=== PATIENT | female | born 1970 | race Caucasian/White ===

== ENCOUNTER → 2016-04-02 | Outpatient (CLI) | payer BC | LOC: RAD 14:19 | PROVIDERS: ATTEND Obstetrics & Gynecology | DX: N83.202 Unspecified ovarian cyst, left side (principal); Z90.710 Acquired absence of both cervix and uterus | CPT/HCPCS: 76856 ==

== ENCOUNTER → 2016-05-15 | Outpatient (CLI) | payer BC ==
[~2016-05-15] MED LIST: ALBU6.7H IH; ALPR1TAB PO; ASPI81TA16 PO; MONT10TA21 PO; TRAZ-28 PO
[2016-05-15 10:02] LABS: BASOPHILS % (AUTO) 0 % (0-2); EOSINOPHILS # (AUTO) 0.2 10^3uL; EOSINOPHILS % (AUTO) 3 % (0-4); LYMPHOCYTES # (AUTO) 2.1 X10^3; MEAN CORPUSCULAR HEMOGLOBIN 28.4 PG (26.0-34.0); MEAN CORPUSCULAR HGB CONC 33.1 g/dL (31.0-37.0); MEAN CORPUSCULAR VOLUME 86 FL (80-100); MEAN PLATELET VOLUME 8.7 FL (6.0-9.5); MONOCYTES # (AUTO) 0.4 X10^3; MONOCYTES % (AUTO) 5 % (3-11); NEUTROPHILS # (AUTO) 4.5 X10^3; NEUTROPHILS % (AUTO) 62 % (51-67); PLATELET COUNT 279 10^3uL (150-450)
[2016-05-15 10:18] LABS: ALBUMIN 4.5 g/dL (3.4-5.0); ANION GAP 17.4 MEQ/L (3-15); CALCULATED IONIZED CALCIUM 3.8 mg/dL (3.8-4.6); TOTAL PROTEIN 7.7 g/dL (6.4-8.5)
--- NOTE | 2016-05-15 10:59 | Diagnostic Imaging Report ---
INDICATION: Screening prior to operative procedure. PA and lateral views of the chest were obtained. FINDINGS: The heart size, mediastinal configuration, and pulmonary vascularity are within normal limits. There is no pleural effusion, pneumothorax, or pneumonia. The osseous structures are unremarkable. IMPRESSION: No acute cardiopulmonary abnormality. Dictated by: Dictated on workstation # [id number]
== END ==
LOC: RAD 09:48
PROVIDERS: ATTEND Internal Medicine
DX: Z01.818 Encounter for other preprocedural examination (principal)
CPT/HCPCS: 36415; 71020; 80053; 85025

== ENCOUNTER 2016-07-07 16:00 | Outpatient (RCR) | payer BC ==
--- NOTE | 2016-06-15 10:58 | PT/OT/ST INITIAL EVALUATION ---
Department of Health and Human Services Form Approved Health Care Financing Administration OMB No. [id number] PLAN OF CARE/ASSESSMENT FOR OUTPATIENT REHABILITATION (Complete for Initial Claims Only) 1. PATIENT'S NAME Domingo Villagomez 2. ACC # [id number] 3. HICN NA 4. PROVIDER NO. [id number] 5. TYPE: PT 6. PRIOR HOSPITALIZATION NA 7. PRIMARY DX Left partial knee replacement 8. SECONDARY DX Left knee pain, left knee stiffness, weakness and difficulty walking. 9. ONSET DATE Surgery 06/08/2016 10. REFERRAL DATE 06/08/2016 11. SOC. DATE 06/14/2016 12. TIME OF EVAL 11:29 a.m. to 12:33 p.m. 12. REFERRING PHYSICIAN Omari Pak MD 13. CHARGES/UNITS PT evaluation low complexity 68690 Therapeutic exercise 84694, 2 units Vasopneumatic device 49457, 1 unit 14. G CODES NA 15. PRIOR LEVEL OF FUNCTION; PERTINENT HISTORY (Prior therapy results, reason for referral.) S: Prior to therapy the patient did consent to today's evaluation and treatment. The patient is a 46-year-old female referred to physical therapy by Dr. Pak to address functional limitations secondary to left partial knee replacement performed on 06/08/2016. Current complaint/Mechanism of injury: The patient reports she had a left knee scope 1 year ago and was told it was [id number] and the knee continued to get worse, which led to her having a left partial knee replacement on 06/08/2016. Functional performance/Prior level of function: The patient had a knee scope 1 year ago. The pain progressively got worse and had been attending physical therapy for the majority of the time between the knee scope and knee replacement, pain did limit her ability to do high levels of activity. 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 The patient works in [employer]. Therapy History: The patient had therapy of her left knee after her scope 1 year ago for the majority of the time up to having her partial knee replacement on 06/08/2016. Therapy was done at [facility] at [place]. Pain level: The patient rates the current pain level as not bad now and can get up to 5 to 6/10 and describes it as achy and can be a sharp pain in her left knee. Obstacles to delivery of care: None noted Aggravating factors: Include the bandage that is placed on her knee. Relieving factors: Include rest. Diagnostic testing: None noted. Past medical history: Includes having 2 locations where there were fractures in her lumbar vertebra at S1-2 and at L3-4. The patient had back surgery December 2015. She states there was no hardware placed, but she is not sure of the procedure that was performed. Also osteoarthritis, hypertension, which is controlled. Past surgical history: Includes having a bladder surgery, partial hysterectomy and gallbladder removal, as well as a left knee scope 1 year ago and left partial knee replacement 06/08/2016, lumbar surgery that she is unsure of procedure but not hardware placement Current medications: Include oxycodone, which is not taken regularly, only when needed. Aspirin, Extra Strength Tylenol. Leisure activities: Includes riding horses, mowing using both a push mower and riding mower, cutting down trees and taking care of her horses. Activity level: Listed as moderate to high. Personal health rating: Listed as good. Patient's Goal: The patient's goal for physical therapy is to not have knee pain and to gain strength. The patient would like to get back to riding horses. 16. INITIAL ASSESSMENT/SAFETY PRECAUTIONS/MEDICAL COMPLICATIONS (Level of function at start of care. Be specific, use objective measures, list problems.) O: APPEARANCE, OBSERVATION AND GAIT: The patient presents to physical therapy with the diagnosis of left partial knee replacement. The patient enters the clinic ambulating with antalgic gait pattern and no assistive device. The patient has a bandage, she states bandage has silver nitrate placed in it and the bandage is supposed to stay on for 3 weeks, however, it is starting to peel up off the skin. She states she called the physician's office and they stated to just leave it on and it would likely stay on for 3 weeks. The patient states that she has skin irritations with certain tapes and adhesives and she had the same reaction after her back surgery with the bandaging. It was recommended to the patient that she call the physician's office again and let them know that her skin was irritated and breaking out just to make sure they wanted her to keep that on or see her prior to the 3 week gricel. There was a fair amount of skin irritation around the bandaging and bandage was starting to peel up. The patient lives in a house with her and there are children in and out of the home, her kids and his kids live with them part of the time. Three steps into the home, which she states that she did not have trouble with today. The patient states that she was able to bend her knee much further before falling asleep on the couch and leg slipped off the couch and was not being elevated, so she has been a little bit stiffer since that time. PALPATION: The patient was not significantly tender to palpate on the left lower extremity. SPECIAL TESTS: Bilateral negative Homans lower extremities. RANGE OF MOTION/FLEXIBILITY: Left knee flexion 100 degrees, right knee flexion 147 degrees. Left knee extension -5 degrees, right knee extension +6 degrees. STRENGTH: No formal manual muscle testing was performed due to recent surgery on the left knee. With observation the patient would rate a 3-/5 left knee flexion and extension. TODAY'S TREATMENT: Included the initial PT evaluation followed by therapeutic exercise and given home exercise program handouts followed by vasopneumatic device. 17. INITIAL POC: (Specify procedures, modalities, short and intermodal dispatcher goals) A: The patient presents to physical therapy with a diagnosis of left partial knee replacement with functional limitations of left knee pain, left knee stiffness, difficulty walking and weakness. The patient would benefit from physical therapy in order to regain quad strengthening in order to be able to go up and down steps, ambulate and return to normal activities without deviation and to reestablish proper motor control and proprioception in order to ambulate and perform normal activities without deviation. The patient was educated in the risks of riding horses due to history of falling off the horse that she needs to be very careful as that can compromise a joint replacement. The patient was also educated that she needs to speak with the physician prior to returning to riding horses for him to release her to do that, as well as returning to work. PROGNOSIS: The patient has a good prognosis for increased active range of motion with decreased pain with regular therapy attendance and compliance with home exercise program. CONTRAINDICATIONS, PRECAUTIONS AND OBSTACLES TO DELIVERY OF CARE: No contraindications, precautions, or obstacles are known at this time. INFORMED CONSENT: The prognosis and goals were discussed with this patient, as well as the expected outcome and possible risks. The patient agreed to undergo PT evaluation and further treatment. SHORT TERM GOALS: 1. The patient is to have a decrease in pain of the left knee to less than or equal to 2/10 in 6 weeks in order to be able to ambulate and do light housework without deviation. 2. The patient is to have an increase in active range of motion of the left knee to 0 to 120 degrees in 6 weeks in order to return to getting in and out of the car and putting shoes and socks on without deviation. 3. The patient is to have an increase in manual muscle testing of the left knee to 4+/5 in 6 weeks in order to be able to squat and do housework without deviation and to have proper quad activation for activities without deviation. 4. The patient is to be independent with a progressive home exercise program. P: Plan to treat this patient 2 times a week for 6 weeks. Treatment to include modalities for pain and inflammation, manual therapy interventions, therapeutic exercise, active and passive range of motion, gait training, balance proprioceptive training, neural reeducation and patient education and prescription of progressive home exercise program as tolerable. 18. FREQUENCY 2 times per week 19. DURATION 6 weeks 20. FUNCTIONAL LEVEL (End of claim period) 21. PHYSICIAN SIGNATURE ? ON FILE OR ENTER HERE: 22. DATE: I certify the need for these services furnished under this plan of care and if for partial hospitalization. 23. CERTIFICATION FROM THROUGH FORM [id number]
== END 2016-07-12 09:30 | disposition home or self-care (01) ==
LOC: PT 16:00
PROVIDERS: ATTEND Orthopaedic Surgery
DX: Z96.652 Presence of left artificial knee joint (principal); M25.562 Pain in left knee; R26.2 Difficulty in walking, not elsewhere classified